=== PATIENT | female | born 1945 | race Caucasian/White ===

== ENCOUNTER 2025-04-17 13:20 | Emergency (ER) | payer MEDICARE ==
[~2025-04-17] VITALS: Ht 165.1 cm; Wt 79.4 kg
--- NOTE | 2025-04-17 13:26 | ERN ---
ED Note History of Present Illness Stated Complaint: LEFT ARM PAIN Chief Complaint: Arm Swelling/Redness Time Seen by MD: 13:22 Dictation: PATIENT IS AN 79-YEAR-OLD FEMALE HERE WITH LEFT SHOULDER AND LEFT UPPER ARM PAIN STATUS POST A SAME LEVEL SLIP FALL YESTERDAY. 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 NO BLOOD THINNERS NO HEAD INJURY NO LOC NO NAUSEA VOMITING NO TRAUMA ALERT CRITERIA. PATIENT HAS A LEFT ANTERIOR SHOULDER AND PROXIMAL HUMERUS PAIN. DISTAL NE UROVASCULAR CMS INTACT SHE HAS NOT TAKEN ANYTHING PRIOR TO ARRIVAL Allergies: Coded Allergies: No Known Allergies (Unverified Allergy, Unknown, 04/17/25) Home Meds Active Scripts Acetaminophen with Codeine (Acetaminophen-Cod #3 Tablet) 300 Mg-30 Mg Tablet, 1 TAB PO Q4H PRN for MODERATE TO SEVERE PAIN, #15 TAB 0 Refills Prov:CELESTINADAGOBERTO ADVERTISING ACCOUNT EXECUTIVE 04/17/25 Past Medical History History: Not Applicable RN Note Reviewed/Agreed w/PFSH: Yes Review of System Dictation CONSTITUTIONAL: NEGATIVE EXCEPT FOR HPI HEAD/FACE: NEGATIVE EXCEPT FOR HPI EENT: NEGATIVE EXCEPT FOR HPI RESPIRATORY: NEGATIVE EXCEPT FOR HPI GASTROINTESTINAL/ABDOMINAL: NEGATIVE EXCEPT FOR HPI GENITOURINARY: NEGATIVE EXCEPT FOR HPI MUSCULOSKELETAL: NEGATIVE EXCEPT FOR HPI LEFT SHOULDER/HUMERUS PAIN INTEGUMENTARY: NEGATIVE EXCEPT FOR HPI NEUROLOGICAL/PSYCH: NEGATIVE EXCEPT FOR HPI HEMATOLOGIC/LYMPHATIC: NEGATIVE EXCEPT FOR HPI ALL SYSTEMS NEGATIVE, EXCEPT NOTED ABOVE. 13 POINT REVIEW OF SYSTEMS ASSESSED AND ALL NEGATIVE EXCEPT FOR ABOVE. Initial Vital Sign VS Vital Signs Date Time Temp Pulse Resp B/P (MAP) Pulse Ox O2 Delivery O2 Flow Rate FiO2 04/17/25 13:22 98.4 94 16 133/89 97 Room Air 0 04/17/25 15:04 21 Physical Exam Dictation VITAL SIGNS REVIEWED GENERAL APPEARANCE: ALERT, ORIENTED X 3, NO MODERATE CUTE DISTRESS, WELL DEVELOPED, NOURISHED. HEAD AND FACE: NON-TRAUMATIC. EYES: PERRL, PINK CONJUNCTIVAS, EYELID NO TRAUMA, ANTERIOR CHAMBER WITH ARCUS SENILIS. EARS: PINNAS INTACT AND NO SIGNS OF TRAUMA OR ERYTHEMA EAR CANALS CLEAR AND NO DISCHARGE TM NO ERYTHEMA NOSE: NO DISCHARGE, NO BLEEDING. OROPHARYNX: MOUTH NORMAL, TONGUE PINK, PHARYNX CLEAR,NO ERYTHEMA, TONSILS NO EXUDATES, NO ABSCESSES NOTED, MUCOUS MEMBRANE MOIST NECK: SUPPLE, NON-TENDER, NO THYROMEGALY, NO MASSES, NO JVD, NO BRUITS BREAST:DEFERRED CHEST:NO TENDERNESS, NO CREPITUS, NO PARADOXICAL MOVEMENT, NO RETRACTIONS LUNGS:CLEAR, WELL-VENTILATED, SYMMETRIC, NO RALES, NO WHEEZING, NO RHONCHI, NO STRIDOR, GOOD BREATH SOUNDS BILATERALLY HEART: REGULAR RATE, REGULAR RHYTHM, NO MURMUR, NO GALLOPS VASCULAR: NO PERIPHERAL EDEMA, ABDOMEN: SOFT, POSITIVE BOWEL SOUNDS, NONDISTENDED, NO GUARDING, NONTENDER, NO REBOUND, NO MASSES NO HEPATOMEGALY, NO SPLENOMEGALY, NO GIORDANO'S SIGN, NO HERNIAS. RECTAL: DEFERRED GENITAL: DEFERRED NEUROLOGICAL: NORMAL SPEECH, MOTOR FUNCTION INTACT, SENSORY FUNCTION INTACT MUSCULOSKELETAL: NECK NONTENDER, FULL RANGE OF MOTION, BACK NONTENDER, FULL RANGE OF MOTION, EXTREMITIES: TENDERNESS WITH DECREASED RANGE OF MOTION TO LEFT ANTERIOR SHOULDER AND PROXIMAL HUMERUS. PATIENT FLEXED OVER ABDOMEN IN POSITION OF COMFORT. SKIN: COLOR PINK, DRY, NO TURGOR, NO RASH, NO LACERATIONS, NO ABRASIONS, NO CONTUSIONS. LYMPHATIC: DEFERRED Results (Laboratory/Radiology) Laboratory/Radiology LEFT SHOULDER AND HUMERUS X-RAY DEMONSTRATES DISPLACED HUMERAL HEAD FRACTURE Labs Reviewed?: Yes ED Course ED Course Orders Procedure Category Date Status Time Shoulder Comp 2+Vws Lt RAD 04/17/25 Resulted 13:22 Humerus 2+Vws Lt RAD 04/17/25 Resulted 13:22 Acetaminophen With PHA 04/17/25 Complete Codeine (Tylenol-Code 13:30 Sling LILLIAN 04/17/25 Complete 14:09 Current Medications Medications (Trade) Dose Ordered Sig/Shania Route PRN Reason Start Time Stop Time Status Last Admin Dose Admin Acetaminophen/ Codeine Phosphate (TYLenol-coDEINE TAB) 2 tab ONCE ONCE PO 04/17/25 13:30 04/17/25 13:31 DC 04/17/25 15:04 Vital Signs Date Time Temp Pulse Resp B/P (MAP) Pulse Ox O2 Delivery O2 Flow Rate FiO2 04/17/25 15:04 98.2 92 16 156/88 95 Room Air* 0 21 04/17/25 13:22 98.4 94 16 133/89 97 Room Air 0 1410/SPOKE WITH DR. ERIN SAINZ AND SHE REVIEWED FILMS. SHE SAID TO PLACE THE PATIENT IN A SLING FOLLOW UP IN HER OFFICE AND CALL FOR AN APPOINTMENT. Medical Decision Making [facility] MEDICAL DISCHARGE MAKING BASED ON EMPIRIC TREATMENT FOR MUSCULOSKELETAL PAIN X-RAY OF LEFT SHOULDER AND HUMERUS DEMONSTRATE A DISPLACED HUMERAL HEAD FRACTURE SLING PLACED PATIENT PRESCRIBED TYLENOL NO. 3 FOR SEVERE PAIN REFERRED TO DR. ERIN SAINZ. NEUROVASCULAR CMS INTACT TO DISTAL LEFT HAND POST SLING DX & DISP Disposition: Discharge Departure Impression: Primary Impression: Fracture of humeral head, left, closed Additional Impression: Fall Condition: Stable Scripts Acetaminophen with Codeine (Acetaminophen-Cod #3 Tablet) 300 Mg-30 Mg Tablet 1 TAB PO Q4H PRN for MODERATE TO SEVERE PAIN, #15 TAB 0 Refills Prov: DAGOBERTO OSCAR 04/17/25 Additional Instructions: FOLLOW-UP WITH PRIMARY CARE PROVIDER IN 1 TO 2 DAYS. TAKE MEDICATIONS DIRECTED HERE IN THE EMERGENCY ROOM. OKAY TO CONTINUE HOME MEDICATIONS UNLESS OTHERWISE DISCUSSED DURING YOUR VISIT IN THE EMERGENCY ROOM TODAY. RETURN TO YOUR NEAREST EMERGENCY ROOM IF SYMPTOMS WORSEN OR IF THERE IS NO IMPROVEMENT. CALL 911 IF YOU NEED IMMEDIATE ASSISTANCE. TAKE TYLENOL OR MOTRIN LOSM-HMR-FONLAKW NEEDED AND IF NO CONTRAINDICATIONS ARE PRESENT. INCREASE ORAL HYDRATION. A WOUND CULTURE OR URINE CULTURE WAS ORDERED HERE IN THE EMERGENCY ROOM DEPARTMENT PLEASE FOLLOW-UP WITH PRIMARY CARE PROVIDER AND ADVISE THEM TO GET REPEAT PORTS FROM OUR FACILITY. IF YOU HAD ANY CHLOÉ WRAP/SPLINTS THAT WERE APPLIED HERE, PLEASE DO NOT REMOVE THEM UNTIL YOU SEE YOUR PRIMARY CARE OR SPECIALTY. SLING AND NO WEIGHT-BEARING TO LEFT ARM UNTIL CLEARED BY DR. SAINZ, CALL HER OFFICE TODAY FOR AN APPOINTMENT COOL COMPRESSES TO PAIN THREE TO 4 TIMES A DAY. TAKE TYLENOL WITH CODEINE DIRECTED FOR PAIN. Referrals: ERIN SAINZ MD Time of Disposition: 14:11 I have reviewed the case, and I agree with, Diagnosis and Plan DAGOBERTO OSCAR Apr 17, 2025 13:26 KARY RICE DO Apr 17, 2025 17:51
[2025-04-17] MEDS ORDERED: ACET-2079 PO (14:15)
[2025-04-17 15:04] VITALS: BP 156/88; PULSE 92; RESP 16; TEMP 98.2; O2SAT 95
--- NOTE | 2025-04-17 15:07 | NUR ---
SLING PLACED TO LEFT ARM, PT TOLERATED WELL
--- NOTE | 2025-04-17 15:08 | HMCIMG ---
EXAM: CR left humerus, 2 View. CLINICAL HISTORY: LEFT PROXIMAL HUMERUS PAIN STATUS POST FALL YESTERDAY COMPARISON: None provided. FINDINGS: Mildly displaced fracture involving the surgical neck and head of the proximal left humerus. Joint spaces remain anatomically aligned. There is no acute abnormality on limited views of the chest. IMPRESSION: 1. Mildly displaced fracture of the surgical neck and head of the proximal left humerus. /[place]
--- NOTE | 2025-04-17 15:09 | HMCIMG ---
EXAM: CR left Shoulder, 2 View. CLINICAL HISTORY: LEFT ANTERIOR SHOULDER PAIN STATUS POST FALL YESTERDAY COMPARISON: None provided. FINDINGS: Mildly displaced fracture involving the surgical neck and head of the proximal left humerus. Joint spaces remain anatomically aligned. There is no acute abnormality on limited views of the chest. IMPRESSION: 1. Mildly displaced fracture of the surgical neck and head of the proximal left humerus. /[place]
== END 2025-04-17 15:24 | disposition home or self-care (01) ==
LOC: EDH 13:20
DX: S42.212A Unspecified displaced fracture of surgical neck of left humerus, initial encounter for closed fracture (principal); S42.292A Other displaced fracture of upper end of left humerus, initial encounter for closed fracture; W01.198A Fall on same level from slipping, tripping and stumbling with subsequent striking against other object, initial encounter; Y93.89 Activity, other specified; Y92.89 Other specified places as the place of occurrence of the external cause; Y99.8 Other external cause status
CPT/HCPCS: 29105; 73030; 73060; 99284